=== PATIENT | male | born 1990 | race Caucasian/White ===

== ENCOUNTER 2023-07-05 07:43 | Emergency (ER) | payer BC ==
[2023-07-05 07:56] VITALS: BP 121/68; PULSE 74; TEMP 98.3; O2SAT 97
--- NOTE | 2023-07-05 08:42 | ERPHSYRPT ---
- History of Present Illness Time Seen by Provider: 07/05/23 08:00 Source: patient Exam Limitations: no limitations Patient Subjective Stated Complaint: pt fell down 3 steps and injured his left foot Triage Nursing Assessment: Pt brought to the ER by his , richardson williamson, rates pain as 3/10 until he is walking then it is 6/10, pulses normal, skin n/w/d, pain across the top of the proximal top of foot, denies any other issues Physician History: Patient is a 32-year-old male presents to our ED for evaluation of pain to his left midfoot. Patient was descending 3 steps. Patient stepped down with his left foot while carrying his 2-year-old son and hyper plantarflexed his foot. Patient has pain at the dorsal aspect of his right foot just distal to the ankle. Injury occurred just prior to arrival. Pain described as an ache that is localized. No radiation. Pain 3 out of 10 at rest. Pain 6 out of 10 upon ambulation. Patient declined pain medication. No involvement of his knee hip or back. No falls or trauma. Patient otherwise healthy. at bedside. They voiced no other complaints or concerns at this time. Portions of this note were created with voice recognition technology. There may be grammatical, spelling, punctuation or sound alike errors Method of Injury: other Occurred: just prior to arrival Quality: constant Severity of Pain-Max: moderate Severity of Pain-Current: mild Lower Extremities Pain: foot: left Modifying Factors: Improves With: movement (Pain worse with movement and weightbearing) Associated Symptoms: none Allergies/Adverse Reactions: Penicillins Allergy (Verified 07/05/23 07:57) Home Medications: No Reportable Medications [No Reported Medications] 07/05/23 [History] Hx Tetanus, Diphtheria Vaccination/Date Given: Yes Hx Influenza Vaccination/Date Given: No Hx Pneumococcal Vaccination/Date Given: No Travel Risk - International Travel Have you traveled outside of the country in past 3 weeks: No - Coronavirus Screening Are you exhibiting any of the following symptoms?: No Close contact with a COVID-19 positive Pt in past 14-21 Days: No - Vaccine Status Have you recieved a Covid-19 vaccination: No - Review of Systems Constitutional: No Symptoms, No Fever, No Chills Eyes: No Symptoms Ears, Nose, & Throat: No Symptoms Respiratory: No Symptoms, No Cough, No Dyspnea Cardiac: No Symptoms, No Chest Pain, No Edema, No Syncope Abdominal/Gastrointestinal: No Symptoms, No Abdominal Pain, No Nausea, No Vomiting, No Diarrhea Genitourinary Symptoms: No Symptoms, No Dysuria Musculoskeletal: No Symptoms, No Back Pain, No Neck Pain Skin: No Symptoms, No Rash Neurological: No Symptoms, No Dizziness, No Focal Weakness, No Sensory Changes Psychological: No Symptoms Endocrine: No Symptoms Hematologic/Lymphatic: No Symptoms Immunological/Allergic: No Symptoms All Other Systems: Reviewed and Negative - Past Medical History Pertinent Past Medical History: Yes History: Other Psycho-Social History: No Pertinent History Other Medical History: KIDNEY STONES - Past Surgical History Past Surgical History: No - Social History Smoking Status: Never smoker Exposure to second hand smoke: No Drug Use: none Patient Lives Alone: No - Nursing Vital Signs Nursing Vital Signs: Initial Vital Signs Temperature 98.3 F 07/05/23 07:49 Pulse Rate 74 07/05/23 07:49 Blood Pressure 121/68 07/05/23 07:49 O2 Sat by Pulse Oximetry 97 07/05/23 07:49 Pain Scale Pain Intensity 3 - Physical Exam General Appearance: alert Neck Exam: normal inspection, full range of motion Cardiovascular/Respiratory Exam: chest non-tender, regular rate/rhythm, no respiratory distress Gastrointestinal/Abdominal Exam: No guarding Back Exam: normal inspection, normal range of motion, No vertebral tenderness Hips Exam: bilateral: non-tender, normal inspection, normal range of motion, no evidence of injury Legs Exam: bilateral leg: non-tender, normal inspection, normal range of motion, no evidence of injury Knees Exam: bilateral knee: non-tender, normal inspection, normal range of motion, no evidence of injury Ankle Exam: bilateral ankle: non-tender, normal inspection, normal range of motion, no evidence of injury Foot Exam: left foot: pain, soft tissue tenderness, other (The involved left lower extremities neurovascular tact distally compartments are soft cap refill less than 2 seconds. No deformity. No open or draining lesions.) Neuro/Tendon Exam: normal sensation, normal motor functions Mental Status Exam: alert, oriented x 3, cooperative Skin Exam: normal color, warm, dry SpO2 Interpretation: normal SpO2: 97 O2 Delivery: Room Air - Course Nursing assessment & vital signs reviewed: Yes - Radiology Exams Foot X-ray Interpretation: Interpreted by me (No fracture dislocations. No soft tissue abnormalities) Ordered Tests: Active Orders 24 hr Category Date Time Status FOOT (MINIMUM 3 VIEWS) Stat Exams 07/05/23 08:23 Taken - Progress Progress: unchanged Progress Note: Patient is a 32-year-old male presents to our ED with pain to his left foot. Patient hyper plantarflexed in his left foot while descending steps. Injury occurred just prior to arrival. Physical exam shows tenderness at the dorsum of the left foot. Overlying soft tissue intact. X-ray negative for fracture dislocation. No obvious soft tissue abnormalities. Patient declined pain medication. Jassi wrap applied. Patient declined crutches. Work note provided per his request. Patient also given a follow-up appointment with orthopedics for further evaluation and treatment. Patient understands that x-rays have limitations and that there may be an underlying fracture which is not evident on x-ray. Patient understands the importance of following up with his primary care doctor for reexamination. If symptoms do not resolve in a week repeat imaging studies may be indicated. Significant other at bedside. They voiced no other complaints or concerns at this time. Portions of this note were created with voice recognition technology. There may be grammatical, spelling, punctuation or sound alike errors Complexity problem addressed is low acute uncomplicated Complexity data reviewed and analyzed is moderate. Dr. Erickson independently reviewed x-ray of left foot. Formal read pending Risk of complication and or risk of morbidity/mortality of patient management is low Will discharge home. Vital stable. Time spent to discharge patient is approximately 10 minutes. Plan of care established for shared decision making. No social determinants of health present impede follow-up. 07/05/23 08:53 Counseled pt/family regarding: diagnosis, need for follow-up, rad results - Departure Departure Disposition: Home Clinical Impression: Foot sprain Condition: Stable Critical Care Time: No Referrals: RADHA SHIPMAN NP [Primary Care Provider] - Follow up/PCP as directed Additional Instructions: Discharge/Care Plan MAX TELLEZ was seen on 07/05/23 in the Emergency Room. The patient was counseled regarding Diagnosis,Lab results, Imaging studies, need for follow up and when to return to the Emergency Room. Prescriptions given: Discharge Note I have spoken with the patient and/or caregivers. I have explained the patient's condition, diagnosis and treatment plan based on the information available to me at this time. I have answered the patient's and/or caregiver's questions and addressed any concerns. The patient and/or caregivers have as good understanding of the patient's diagnosis, condition and treatment plan as can be expected at this point. The vital signs have been stable. The patient's condition is stable and appropriate for discharge from the emergency department. The patient will pursue further outpatient evaluation with the primary care physician or other designated or consulting physician as outlined in the discharge instructions. The patient and/or caregivers are agreeable to this plan of care and follow-up instructions have been explained in detail. The patient and/or caregivers have received these instruction. The patient/and or caregivers are aware that any significant change in condition or worsening of symptoms should prompt an immediate return to this or the closest emergency department or call 911. Forms: Work/School Release Form Outpatient Orders: Ortho Referral Time Frame: 1 Day, Facility: [facility]. Hosp, Location: [facility]
--- NOTE | 2023-07-05 09:16 | XRAY ---
Indication: Pain following fall. Comparison: None 3 nonweightbearing views left foot demonstrates tiny posterior heel spur and incidental tiny cuboid accessory ossicle. No other bony, articular, or soft tissue abnormalities.
== END 2023-07-05 09:17 | disposition home or self-care (01) ==
LOC: ED 07:43
DX: S93.602A Unspecified sprain of left foot, initial encounter (principal); X50.0XXA Overexertion from strenuous movement or load, initial encounter; Z28.310 Unvaccinated for COVID-19
CPT/HCPCS: 73630; 99283